=== PATIENT | male | born 1950 | race Caucasian/White ===

== ENCOUNTER 2017-06-06 07:58 | Observation (INO) | payer BC ==
[~2017-06-06] VITALS: Ht 175.3 cm; Wt 101.2 kg
[~2017-06-06 07:58] MED LIST: AMLO5TAB2 PO; ASPI-621 PO; ATOR40TA78 PO; HYDR25TA6 PO; LISI-170 PO; MULT-154 PO; OMEP-110 PO
[2017-06-06 08:42] VITALS: BP 166/96
[2017-06-06] MEDS ORDERED: CEFAZOLIN 1,000 MG ONE (09:57)
[2017-06-06] MEDS ORDERED: FENTANYL PF 100 MCG/2ML ONE (09:57)
[2017-06-06] MEDS ORDERED: MIDAZOLAM 1 MG/ML, 5ML ONE (09:57)
[2017-06-06] MEDS ORDERED: CEFAZOLIN PMX 1GM/50ML 50 ML ONE (09:57)
[2017-06-06] MEDS ORDERED: LIDOCAINE-MPF 2% ,5ML ONE (09:59)
[2017-06-06] MEDS ORDERED: ZOLPIDEM 5MG TABLET PO PRN (11:30)
[2017-06-06] MEDS ORDERED: ACETAMINOPHEN 325 MG TABLET PO PRN (11:30)
[2017-06-06] MEDS ORDERED: HYDROcodone/APAP 5/325 TABLET PO PRN (11:30)
[2017-06-06 11:54] VITALS: BP 134/78
[2017-06-06 14:00] VITALS: BP 156/90
[2017-06-06 18:42] VITALS: BP 139/76
[2017-06-06] MEDS: CEFAZOLIN PMX 1GM/50ML 50 ML IVPB SCH (18:58)
[2017-06-06] MEDS: SODIUM CHLORIDE FLUSH 10ML SYR IVF SCH (20:44)
[2017-06-06] MEDS ORDERED: ATORVASTATIN 40 MG TABLET PO SCH (21:00)
[2017-06-07 00:23] VITALS: BP 148/80
[2017-06-07] MEDS: CEFAZOLIN PMX 1GM/50ML 50 ML IVPB SCH (01:53)
[2017-06-07 07:45] VITALS: BP 167/84
[2017-06-07] MEDS ORDERED: HYDROCHLOROTHIAZIDE 25 MG TABLET PO SCH (09:00)
[2017-06-07] MEDS ORDERED: LISINOPRIL 20 MG TABLET PO SCH (09:00)
[2017-06-07] MEDS ORDERED: MULTIVITAMIN 1 TABLET PO SCH (09:00)
[2017-06-07] MEDS ORDERED: AMLODIPINE 5 MG TABLET PO SCH (09:00)
[2017-06-07] MEDS ORDERED: OMEPRAZOLE 20 MG CAPSULE.DR PO SCH (09:00)
[2017-06-07] MEDS ORDERED: ASPIRIN 81 MG TABLET EC PO SCH (09:00)
[2017-06-07] MEDS ORDERED: METO-93 PO (09:01)
[2017-06-07] MEDS: SODIUM CHLORIDE FLUSH 10ML SYR IVF SCH (09:06)
== END 2017-06-07 10:49 | disposition home or self-care (01) ==
LOC: CACL 07:58 → ORIP 11:09 → 5SO 11:37
PROVIDERS: ADMIT Internal Medicine Cardiovascular Disease; ATTEND Internal Medicine Cardiovascular Disease
DX: I49.5 Sick sinus syndrome (principal); R00.1 Bradycardia, unspecified
CPT/HCPCS: 33208; 71045; 71046; 96365; 96375; 99156; 99157; C1779; C1785; G0378; J0690; J2250; J3010; J3490